=== PATIENT | female | born 1980 | race Caucasian/White ===

== ENCOUNTER 2018-09-21 05:55 | Day surgery (SDC) | payer OTHER ==
[~2018-09-21] VITALS: Ht 170.2 cm; Wt 105.2 kg
[~2018-09-21 05:55] MED LIST: DEPO-PROVE150 MG/1 M IM; EPIN0.3P IM; IMITREX25 MG PO; KLONOPIN1 MG PO; LAMICTAL100 MG PO; PROZAC20 MG PO; TOPAMAX50 MG PO; TRAZODONE HCL100 MG PO; VENTOLIN HFA18 GM INH; ZYRTEC10 M3 PO
--- NOTE | 2018-09-21 08:46 | NUR ---
09/21/18 0846 Nancy Pompa 0834- PT ARRIVES TO PACU FROM OR ON RA WITH SATS 100%. MAC ANESTHESIA FOR EGD/COLONOSCOPY. PT VERBALIZES NO PAIN/NAUSEA AND IS REACTIVE TO VERBAL STIMULUS. PT IS AWAKE AND TALKING APPROPRIATELY. RESP EVEN AND UNLABORED. 0845- PT LEFT LATERAL. RESP EVEN AND UNLABORED. VSS. RA SATS 100%. PT DENIES PAIN/NAUSEA AND ENC TO PASS GAS. PT ABLE TO PASS GAS AND ASKS/ANSWERS QUESTIONS APPROPRIATELY.
--- NOTE | 2018-09-21 11:43 | NUR ---
PT IN BED, RESTING COMFORTABLY-ALERT AND ORIENTED. SHE WAS PLEASANT, SEEMED TO DEAL WITH PREP APPROPRIATELY. PT REQUESTED PRAYER, WILL FOLLOW NEEDED
--- NOTE | 2018-09-24 15:01 | OR ---
[facility] [address], [place] [address] Signed DATE OF OPERATION: 09/21/2018 SURGEON: Gerda Maya MD PREOPERATIVE DIAGNOSES: 1. Abdominal bloating and pain. 2. Diarrhea. 3. Reported history of "ulcers of stomach" and prior history of hiatal hernia repair in 1995. POSTOPERATIVE DIAGNOSES: 1. Lax flap valve without associated hiatal hernia or esophagitis. 2. Antral gastritis (mild). 3. Normal-appearing colon and ileum regarding inflammation. 4. Polyps x3. PROCEDURES: 1. Esophagogastroduodenoscopy with biopsy. 2. Total colonoscopy to cecum with intubation of ileum and random biopsies. 3. Snare polypectomy x1. 4. Cold morcellation polypectomy x2. ANESTHESIA: Intravenous sedation, propofol infusion; Tai Montalvo CRNA. INDICATION: This 38-year-old white woman is a patient of ZAYNAB Kaye and has somewhat complex history. She does have complaints of diarrhea, abdominal pain episodically including epigastric pain as well as postprandial bloating and fullness. Biliary workup is underway also. She has undergone hiatal hernia repair in 1995 elsewhere and it was said to have had ulcers as diagnosed by upper GI. She currently takes sucralfate. Concern has been maintained for possible inflammatory bowel disease. Due to various issues of anxiety and so forth, I think it more likely she has irritable bowel syndrome. On the basis of her complaint, she is here to undergo upper endoscopy and colonoscopy. She understands as does her the risks of bleeding, infection, and perforation and wished to proceed. Electronically Signed By: GERDA MAYA MD 09/24/18 1501 PATIENT NAME: OK MOSLEY OPERATIVE REPORT DATE OF : 84 REPORT #: [id number] PHYSICIAN: GERDA MAYA MD PCP: BETO WHIPPLE PAC REPORT IS CONFIDENTIAL AND NOT TO BE RELEASED WITHOUT AUTHORIZATION [facility] [address], [place] [address] Signed FINDINGS: Upper endoscopy showed somewhat lax flap valve, but no gross hiatal hernia proper. She had no esophagitis or Marie epithelium. The stomach showed antral gastritis to a mild degree. Main body of stomach was normal. The duodenum was reasonably normal as well. CLOtest was negative 30 minutes postprocedure. On colonoscopy, she had a good bowel prep. Complete colonoscopy was undertaken of the cecum and intubation of the ileum was accomplished as well. Throughout the colon and rectum and ileum, there was no evidence of inflammatory change. She had three polyps, one of them somewhat larger at the splenic flexure, which was excised by snare polypectomy technique and two others in the sigmoid and rectosigmoid, excised with cold morcellation technique. None of them looked worrisome for malignancy. She had no diverticulosis. DESCRIPTION OF PROCEDURE: The patient was brought to the endoscopy suite where she was given topical Hurricaine spray hypopharyngeal anesthesia and propofol infusional sedation. A bite block was placed. An Olympus video upper endoscope was passed in the hypopharynx. The vocal cords appeared normal. Scope was advanced to the esophagus without problem throughout its length. The esophagus appeared normal including the distal portion. There was no esophagitis, Marie's epithelium, or other issue. The scope was advanced to the stomach, which was insufflated with air. Rugal folds were normal. There was mild antral gastritis, but no ulceration. The pylorus was normal and non-deformed. The duodenum was examined, third and second portions normal. Mild inflammation of the bulb. Biopsies were taken of the second and bulbar portion. The scope was withdrawn to the stomach. Biopsies taken of the antrum for both ZIA and pathologic testing. Retroflexed view was undertaken showing an easily feasible flap valve. No sign of hiatal hernia proper however. The scope was withdrawn to the distal esophagus and biopsies taken of the distal esophagus and the midesophagus. Neuro band imaging was used affirming no evidence of Marie's epithelium. The scope was removed and plans were made for colonoscopy. Additional sedation was given by the computer information systems instructor. A digital rectal examination performed and an Olympus video colonoscope passed into the rectum and manipulated throughout the colon. Irrigation was undertaken throughout. Ultimately, the cecum was intubated. The ileocecal valve and appendiceal orifice were normal. With various manipulations, the ileocecal valve was intubated and the ileal mucosa appeared normal. Biopsies were taken nevertheless. The scope was withdrawn and biopsy was then taken of the cecum. Careful withdrawal of the scope showed normal appearing mucosa until the splenic flexure where a somewhat pedunculated looking polyp was noted. This was excised with cold snare polypectomy technique. Further withdrawal of scope showed two other small polyps in the sigmoid and rectosigmoid. Biopsies were taken randomly through the Electronically Signed By: GERDA MAYA MD 09/24/18 1501 PATIENT NAME: OK MOSLEY OPERATIVE REPORT DATE OF : 84 REPORT #: [id number] PHYSICIAN: GERDA MAYA MD PCP: BETO WHIPPLE PAC REPORT IS CONFIDENTIAL AND NOT TO BE RELEASED WITHOUT AUTHORIZATION [address] [address] Signed colon to assess for inflammatory bowel disease. Retroflexed view showed no abnormality. Biopsies were taken of the rectum as well. The scope was removed. The patient was taken to recovery room in good condition. CONCLUDING DIAGNOSIS: Polyps x3. No evidence of diverticulosis or inflammatory bowel disease. Ileum normal. On upper endoscopy, a poor flap valve. No sign of esophagitis. Mild antral gastritis. PLAN: Recommend continued use of Carafate as she has been doing. Recommend Citrucel 1 tablespoon daily. Biliary imaging is underway and she will see us back in 4-6 weeks and we will review her evaluation and biopsy reports. MD PHILLIP Murrell/YESSENIAL /[id number] cc: ZAYNAB Kaye Copies: ~ Electronically Signed By: GERDA MAYA MD 09/24/18 1501 PATIENT NAME: OK MOSLEY OPERATIVE REPORT DATE OF : 84 REPORT #: [id number] PHYSICIAN: GERDA MAYA MD PCP: BETO WHIPPLE PAC REPORT IS CONFIDENTIAL AND NOT TO BE RELEASED WITHOUT AUTHORIZATION
== END 2018-09-21 09:20 | disposition home or self-care (01) ==
LOC: OPS 05:55 → DS 05:55 → OPS 06:45 → DS 06:45 → OPS 09:20
PROVIDERS: Surgery
PROC: 0DB28ZX Excision of Middle Esophagus, Via Natural or Artificial Opening Endoscopic, Diagnostic (ICD-10-PCS; 2018-09-21)
PROC: 0DB58ZX Excision of Esophagus, Via Natural or Artificial Opening Endoscopic, Diagnostic (ICD-10-PCS; 2018-09-21)
PROC: 0DBH8ZZ Excision of Cecum, Via Natural or Artificial Opening Endoscopic (ICD-10-PCS; 2018-09-21)
PROC: 0DBL8ZZ Excision of Transverse Colon, Via Natural or Artificial Opening Endoscopic (ICD-10-PCS; 2018-09-21)
PROC: 0DBB8ZX Excision of Ileum, Via Natural or Artificial Opening Endoscopic, Diagnostic (ICD-10-PCS; 2018-09-21)
PROC: 0DB98ZX Excision of Duodenum, Via Natural or Artificial Opening Endoscopic, Diagnostic (ICD-10-PCS; principal; 2018-09-21 06:45)
PROC: 0DB78ZX Excision of Stomach, Pylorus, Via Natural or Artificial Opening Endoscopic, Diagnostic (ICD-10-PCS; 2018-09-21 06:45)
DX: D12.3 Benign neoplasm of transverse colon (principal); K29.50 Unspecified chronic gastritis without bleeding; F31.9 Bipolar disorder, unspecified; K21.0 Gastro-esophageal reflux disease with esophagitis; D64.9 Anemia, unspecified; J45.909 Unspecified asthma, uncomplicated; E66.01 Morbid (severe) obesity due to excess calories; K59.09 Other constipation; F12.10 Cannabis abuse, uncomplicated; Z68.36 Body mass index [BMI] 36.0-36.9, adult; Z83.79 Family history of other diseases of the digestive system; Z79.899 Other long term (current) drug therapy
CPT/HCPCS: J2704; J7120